=== PATIENT | male | born 1955 | race Caucasian/White ===

== ENCOUNTER 2017-11-08 13:30 | Emergency (ER) | payer OTHER ==
[~2017-11-08] VITALS: Ht 185.4 cm; Wt 90.7 kg
[2017-11-08] MEDS ORDERED: SODIUM CHLORIDE 0.9% 1000ML 1,000 ML IV STA (13:46)
[2017-11-08] MEDS ORDERED: KETOROLAC TROMETHAMINE 60 MG/2 ML VIAL IM ONE (14:15)
[2017-11-08] MEDS ORDERED: PREDNISONE 20 MG TAB PO ONE (16:00)
== END 2017-11-08 16:33 | disposition home or self-care (01) ==
LOC: FSED 13:30
DX: M54.5 Low back pain (principal); D18.09 Hemangioma of other sites; I10 Essential (primary) hypertension
CPT/HCPCS: 74176; 80053; 81003; 85025; 99284; J1885; J7030